=== PATIENT | female | born 1940 | race Caucasian/White ===

== ENCOUNTER 2017-11-24 22:03 | Emergency (ER) | payer MEDICARE ==
[~2017-11-24] VITALS: Ht 154.9 cm; Wt 63.2 kg
[~2017-11-24 22:03] MED LIST: ACET-2119 PO; AMLO1CAP19 PO; ATEN-169 PO; FURO-149 PO; FURO-150 PO; METF500T PO; OMEP40CA37 PO; OXYB5TAB11 PO; WARF2.5T9 PO; WARF5TAB9 PO
[2017-11-24 22:57] VITALS: BP 155/97
== END 2017-11-24 23:37 | disposition home or self-care (01) ==
LOC: ER 22:04
DX: K91.840 Postprocedural hemorrhage of a digestive system organ or structure following a digestive system procedure (principal); E78.00 Pure hypercholesterolemia, unspecified; I10 Essential (primary) hypertension; J44.9 Chronic obstructive pulmonary disease, unspecified; Z90.49 Acquired absence of other specified parts of digestive tract; Z88.5 Allergy status to narcotic agent; Z79.01 Long term (current) use of anticoagulants
CPT/HCPCS: 99281

== ENCOUNTER 2017-12-13 02:52 | Emergency (ER) | payer MEDICARE ==
[~2017-12-13] VITALS: Ht 154.9 cm; Wt 61.0 kg
[2017-12-13] MEDS ORDERED: aspirin 81mg tab.chew PO ONE ×2 (03:05→05:30)
[2017-12-13 03:40] LABS: INR 2.8 INR; PARTIAL THROMBOPLASTIN TIME 50 SECONDS (22-32); PROTHROMBIN TIME 28.2 SECONDS (9.0-12.0)
[2017-12-13 03:41] LABS: BASOPHILS % (AUTO) 0.6 % (0-1); EOSINOPHILS # (AUTO) 0.3 X10'3 (0-0.9); HEMATOCRIT 36.9 % (35.0-45.0); HEMOGLOBIN 12.4 g/dl (12.0-16.0); LYMPHOCYTES # (AUTO) 1.9 X10'3 (1.1-4.8); MEAN CORPUSCULAR HGB CONC 33.5 % (33.0-36.5); MEAN CORPUSCULAR VOLUME 89.5 FL (78-98); MEAN PLATELET VOLUME 8.1 FL (7.4-10.4); MONOCYTES # (AUTO) 0.4 X10'3 (0-0.9); MONOCYTES % (AUTO) 7.3 % (2-12); NEUTROPHILS # (AUTO) 2.7 X10'3 (1.8-7.7); NEUTROPHILS % (AUTO) 51.1 % (42-75); PLATELET COUNT 201 X10'3 (140-440); RED BLOOD COUNT 4.12 X10'6 (4.20-5.60); RED CELL DISTRIBUTION WIDTH 15.9 % (11.5-14.5); WHITE BLOOD COUNT 5.3 X10'3 (4.5-11.0)
[2017-12-13 03:42] LABS: ALANINE AMINOTRANSFERASE 17 U/L (12-78); ALBUMIN 3.4 G/DL (3.4-5.0); ALBUMIN/GLOBULIN RATIO 0.9 (1.1-1.5); ALKALINE PHOSPHATASE 96 IU/L (46-116); ANION GAP 8 (8-16); ASPARTATE AMINO TRANSFERASE 18 U/L (10-37); BILIRUBIN,TOTAL 0.5 MG/DL (0.1-1.0); BLOOD UREA NITROGEN 17 MG/DL (7-18); BUN/CREATININE RATIO 19.3 (6.6-38.0); CALCIUM 9.7 MG/DL (8.5-10.1); CHLORIDE 99 MMOL/L (99-107); CREATININE 0.88 MG/DL (0.40-0.90); GLUCOSE 109 MG/DL (70-104); POTASSIUM 4.1 MMOL/L (3.5-5.1); SODIUM 135 MMOL/L (135-145); TOTAL CARBON DIOXIDE 28.2 MMOL/L (24-32); TOTAL PROTEIN 7.2 G/DL (6.4-8.2); eGFR 62 ML/MIN
[2017-12-13] MEDS ORDERED: pantoprazole 40 MG vial IV ONE (05:30)
[2017-12-13] MEDS ORDERED: nitroGLYCERIN 0.2mg/hour patch TD ONE (05:30)
[2017-12-13] MEDS ORDERED: iohexol 350MG/ML 100ml bottle IV ONE (05:39)
[2017-12-13] MEDS ORDERED: WARF5TAB9 PO (05:54)
[2017-12-13] MEDS ORDERED: WARF2.5T9 PO (05:54)
[2017-12-13] MEDS ORDERED: metoprolol PO (05:54)
[2017-12-13] MEDS ORDERED: metoprolol tartrate 1mg/ml inj IV ONE (07:45)
[2017-12-13] MEDS ORDERED: metoprolol tartrate 50mg tablet PO ONE (07:55)
[2017-12-13] MEDS ORDERED: oxybutynin 5mg tablet PO SCH (07:55)
[2017-12-13] MEDS ORDERED: MESSAGE TO NURSING PO SCH (08:00)
[2017-12-13 09:59] VITALS: BP 146/85
== END 2017-12-13 10:01 | disposition home or self-care (01) ==
LOC: ER 02:53
DX: I48.91 Unspecified atrial fibrillation (principal); I10 Essential (primary) hypertension; E78.00 Pure hypercholesterolemia, unspecified; Z88.5 Allergy status to narcotic agent
CPT/HCPCS: 36415; 71045; 71275; 74176; 80053; 84484; 85025; 85610; 85730; 93005; 96374; 96375; 99285; C9113; J3490; J7030; Q9967

== ENCOUNTER 2018-05-26 18:50 | Emergency (ER) | payer MEDICARE ==
[~2018-05-26] VITALS: Ht 154.9 cm; Wt 63.6 kg
[~2018-05-26 18:50] MED LIST changes: -AMLO1CAP19 PO; -ATEN-169 PO; -FURO-149 PO; -FURO-150 PO; +metoprolol PO
[2018-05-26 19:21] LABS: BASOPHILS % (AUTO) 0.4 % (0-1); EOSINOPHILS # (AUTO) 0.2 X10'3 (0-0.9); EOSINOPHILS % (AUTO) 4.4 % (0-6); HEMATOCRIT 36.7 % (35.0-45.0); LYMPHOCYTES # (AUTO) 1.8 X10'3 (1.1-4.8); LYMPHOCYTES % (AUTO) 31.9 % (21-51); MEAN CORPUSCULAR HEMOGLOBIN 29.9 PG (27.0-31.0); MEAN CORPUSCULAR HGB CONC 32.8 % (33.0-36.5); MEAN PLATELET VOLUME 7.8 FL (7.4-10.4); MONOCYTES # (AUTO) 0.5 X10'3 (0-0.9); MONOCYTES % (AUTO) 8.4 % (2-12); NEUTROPHILS # (AUTO) 3.1 X10'3 (1.8-7.7); NEUTROPHILS % (AUTO) 54.9 % (42-75); PLATELET COUNT 215 X10'3 (140-440); RED BLOOD COUNT 4.03 X10'6 (4.20-5.60); RED CELL DISTRIBUTION WIDTH 15.9 % (11.5-14.5); WHITE BLOOD COUNT 5.7 X10'3 (4.5-11.0)
[2018-05-26 19:38] LABS: ALANINE AMINOTRANSFERASE 23 U/L (12-78); ALBUMIN 3.3 G/DL (3.4-5.0); ALBUMIN/GLOBULIN RATIO 0.9 (1.1-1.5); ALKALINE PHOSPHATASE 88 IU/L (46-116); ANION GAP 7 (8-16); ASPARTATE AMINO TRANSFERASE 21 U/L (10-37); BILIRUBIN,TOTAL 0.4 MG/DL (0.1-1.0); BLOOD UREA NITROGEN 13 MG/DL (7-18); BUN/CREATININE RATIO 16.3 (6.6-38.0); CALCIUM 9.1 MG/DL (8.5-10.1); CHLORIDE 98 MMOL/L (99-107); GLUCOSE 108 MG/DL (70-104); INR 2.3 INR; PARTIAL THROMBOPLASTIN TIME 44 SECONDS (22-32); POTASSIUM 3.7 MMOL/L (3.5-5.1); PROTHROMBIN TIME 22.5 SECONDS (9.0-12.0); SODIUM 133 MMOL/L (135-145); TOTAL CARBON DIOXIDE 28.2 MMOL/L (24-32); TOTAL PROTEIN 6.9 G/DL (6.4-8.2); eGFR 69 ML/MIN
[2018-05-26] MEDS ORDERED: iohexol 350MG/ML 100ml bottle IV ONE (20:41)
[2018-05-26] MEDS ORDERED: [UNRECOGNIZED DRUG - REMARK] PO NR (21:00)
[2018-05-26] MEDS: diltiazem 5mg/ml 5ml inj. IV ONE (21:53)
[2018-05-26] MEDS: metoprolol tartrate 50mg tablet PO ONE (21:53)
[2018-05-26] MEDS: propofol 10mg/ml 20ml vial IV ONE (22:00)
[2018-05-26] MEDS: metoclopramide 5 mg/ml inj IV ONE (22:10)
[2018-05-26] MEDS: propofol 1000mg/100ml bottle 100 ML IV ONE (22:11)
[2018-05-26 22:41] VITALS: BP 125/70
== END 2018-05-26 23:36 | disposition home or self-care (01) ==
LOC: ER 18:50
DX: K43.9 Ventral hernia without obstruction or gangrene (principal); I48.91 Unspecified atrial fibrillation; E78.00 Pure hypercholesterolemia, unspecified; I10 Essential (primary) hypertension; I49.9 Cardiac arrhythmia, unspecified; Z90.49 Acquired absence of other specified parts of digestive tract; Z98.890 Other specified postprocedural states; Z88.6 Allergy status to analgesic agent; Z79.899 Other long term (current) drug therapy
CPT/HCPCS: 36415; 71045; 74174; 80053; 84484; 85025; 85610; 85730; 93005; 96374; 96375; 99152; 99153; 99285; J2704; J2765; Q9967; J3490

== ENCOUNTER 2018-09-18 05:37 | Observation (INO) | payer MEDICARE ==
[2018-09-17 11:06] LABS: CLARITY,URINE CLOUDY (Clear); COLOR,URINE YELLOW (Yellow); GLUCOSE, URINE NEGATIVE (Neg); KETONES,URINE NEGATIVE (Neg); LEUKOCYTE ESTERASE ,URINE TRACE (Neg); NITRITES, URINE POSITIVE (Neg); OCCULT BLOOD,URINE TRACE-INTACT (Neg); PROTEIN,URINE NEGATIVE (Neg); UROBILINOGEN,URINE 0.2 E.U/dL (0.2-1.0)
[2018-09-17 11:08] LABS: UA COLLECTION TYPE CLN CATCH MIDSTREAM
[2018-09-17 11:11] LABS: EOSINOPHILS # (AUTO) 0.2 X10'3 (0-0.9); EOSINOPHILS % (AUTO) 4.6 % (0-6); LYMPHOCYTES # (AUTO) 1.4 X10'3 (1.1-4.8); LYMPHOCYTES % (AUTO) 31.2 % (21-51); MEAN CORPUSCULAR HEMOGLOBIN 29.9 PG (27.0-31.0); MEAN CORPUSCULAR HGB CONC 33.4 g/dL (33.0-36.5); MEAN CORPUSCULAR VOLUME 89.7 FL (78-98); MEAN PLATELET VOLUME 7.8 FL (7.4-10.4); MONOCYTES # (AUTO) 0.4 X10'3 (0-0.9); NEUTROPHILS # (AUTO) 2.4 X10'3 (1.8-7.7); NEUTROPHILS % (AUTO) 53.2 % (42-75); PRE OP HEMATOCRIT 36.3 % (35.0-45.0); PRE OP HEMOGLOBIN 12.1 g/dL (12.0-16.0); PRE OP PLATELET COUNT 229 X10'3 (140-440); RED BLOOD COUNT 4.05 X10'6 (4.20-5.60); RED CELL DISTRIBUTION WIDTH 14.7 % (11.5-14.5)
[2018-09-17 11:17] LABS: BACTERIA,URINE 3+ /HPF (Neg); MUCUS STRANDS FEW /LPF (Neg); RBC,URINE 0-2 /HPF (0-2); SQUAMOUS EPITHELIAL CELL,UR FEW /LPF (FEW); WBC,URINE 0-4 /HPF (0-4)
[2018-09-17 11:25] LABS: ALBUMIN 3.3 G/DL (3.4-5.0); ALBUMIN/GLOBULIN RATIO 0.9 (1.1-1.5); ALKALINE PHOSPHATASE 93 IU/L (46-116); BLOOD UREA NITROGEN 12 MG/DL (7-18); BUN/CREATININE RATIO 21.1 (6.6-38.0); CALCIUM 9.4 MG/DL (8.5-10.1); CHLORIDE 99 MMOL/L (99-107); CREATININE 0.57 MG/DL (0.40-0.90); PRE OP ALT 19 U/L (30-65); PRE OP ANION GAP 6 (8-16); PRE OP AST 21 U/L (10-37); PRE OP BILIRUB, TOTAL 0.6 MG/DL (0.0-1.0); PRE OP GLUCOSE 90 MG/DL (70-104); PRE OP POTASSIUM 4.5 MMOL/L (3.4-5.1); PRE OP SODIUM 133 MMOL/L (135-145); TOTAL CARBON DIOXIDE 28.5 MMOL/L (24-32); TOTAL PROTEIN 6.9 G/DL (6.4-8.2); eGFR > 90 ML/MIN
[~2018-09-18] VITALS: Ht 154.9 cm; Wt 62.4 kg
[2018-09-18] VITALS (17 sets, daily range): BP systolic 116–163; BP diastolic 66–104
[~2018-09-18 05:37] MED LIST changes: +DOCUMENT DATE & TIME OF BETA-BLOCKER PO ONE; +METO50TA16 PO; +MV-M1CAP15 PO; +cefazolin/dext.iso 2gm/50ml 50 ML IV ONE; +famotidine 20mg tablet PO ONE; -metoprolol PO
[2018-09-18] MEDS ORDERED: LIDOcaine 1% (10mg/ml) 2ml vial ONE (06:02)
[2018-09-18] MEDS: ringers solution, lacted 1,000 ML IV SCH ×2 (06:22→11:12)
[2018-09-18] MEDS ORDERED: BUPIVAcaine/PF 2.5mg/ml (0.25%) 10ml vial ONE (06:45)
[2018-09-18] MEDS ORDERED: ceFAZolin 1000mg inj ONE (06:45)
[2018-09-18 06:59] LABS: PRE OP PARTIAL THROMB. TIME 32 SECONDS (22-32); PROTHROMBIN TIME 10.1 SECONDS (9.0-12.0)
[2018-09-18] MEDS ORDERED: ipratropium/albuterol 3ml nebule NEB ONE (07:10)
[2018-09-18] MEDS ORDERED: ipratropium/albuterol 3ml nebule ONE (07:16)
[2018-09-18] MEDS ORDERED: ondansetron/PF 4mg/2ml inj ONE (07:31)
[2018-09-18] MEDS ORDERED: sevoflurane 250ml liquid IH ONE (07:31)
[2018-09-18] MEDS ORDERED: fentaNYL/PF 50MCG/1 ML 2ML syringe ONE (07:32)
[2018-09-18] MEDS ORDERED: propofol inj 20 ML IV ONE (07:34)
[2018-09-18] MEDS ORDERED: rocuronium 10mg/ml inj IV ONE (07:34)
[2018-09-18] MEDS ORDERED: LIDOcaine 2% (20mg/ml) 5ml vial ONE (07:34)
[2018-09-18] MEDS ORDERED: dexamethasone sod phosphate 4mg/ml inj. ONE (07:50)
[2018-09-18] MEDS ORDERED: ROPIVAcaine 0.5% (5mg/ml) 30ml vial ONE (08:20)
[2018-09-18] MEDS ORDERED: neostigmine methylsulfate 1 MG/ML 10ml vial ONE (08:28)
[2018-09-18] MEDS ORDERED: glycopyrrolate 0.2mg/ml inj ONE (08:28)
--- NOTE | 2018-09-18 08:45 | NUR ---
Received from OR via BED , accompanied by Anesthesiologist DR LAWLER and report given by Anesthesiolgist. PATIENT WAKING UP, C/O PAIN SEE EMAR, V/S WNL, NEUROVASCULAR CHECKS INTACT, 20G PIV LUE, SCD ON, 4 BANDAIDS TO LAP SIGHTS OF ABDOMEN CDI
[2018-09-18] MEDS ORDERED: morphine 4 MG/ML inj SYRINge IV PRN ×2 (09:10→09:20)
[2018-09-18] MEDS ORDERED: HYDROmorphone inj. 0.5 MG/0.5 ML DISP.SYRIN IV PRN (09:10)
[2018-09-18] MEDS ORDERED: ondansetron/PF 4mg/2ml inj IV PRN ×2 (09:10→10:05)
[2018-09-18] MEDS ORDERED: ringers solution, lacted 1,000 ML IV SCH (09:10)
[2018-09-18] MEDS ORDERED: morphine 4 MG/ML inj SYRINge ONE (09:11)
[2018-09-18] MEDS ORDERED: HYDROcodone/acetaminophen 5mg/325mg tablet PO PRN (10:05)
--- NOTE | 2018-09-18 10:27 | NUR ---
AWAITING ROOM TO BE CLEANED FOR TRANSFER TO SURGICAL. NO CHANGES WITH PATIENT
--- NOTE | 2018-09-18 10:30 | NUR ---
Received report from recovery nurse Ramón DENSON. Awaiting arrival to room 354C.
[2018-09-18] MEDS ORDERED: acetaminophen 325mg tablet PO PRN (10:45)
--- NOTE | 2018-09-18 10:45 | NUR ---
PATIENT SLEEPY BUT ORIENTED X3, DENIES PAIN, V/S WNL, NEUROVASCULAR CHECKS INTACT, 20G PIV LUE, SCD ON, 4 BANDAIDS TO LAP SIGHTS OF ABDOMEN CDI. TAKEN TO SURGICAL WITH ALL BELONGINGS AND HOOKED UP TO MONITORS IN ROOM AND REPORT GIVEN TO JACQUARD FIXER WHO HAS TAKEN OVER PATIENT CARE.
--- NOTE | 2018-09-18 11:15 | NUR ---
Patient arrived to room 354C. VSS. Abdomen soft, lap sites CDI.
--- NOTE | 2018-09-18 16:59 | NUR ---
Post op vital signs taken per protocol. Due to vital sign machine malfunction, VS did not save when machine was unplugged and all values recorded were lost. Informed charge nurse. VS machine tagged for engineering to look at machine.
--- NOTE | 2018-09-18 18:22 | NUR ---
Problems reprioritized. Patient report given, questions answered & plan of care reviewed with Pat RN.
[2018-09-18] MEDS ORDERED: warfarin 2.5mg tablet PO SCH (21:00)
[2018-09-18] MEDS: oxybutynin 5mg tablet PO SCH (21:21)
[2018-09-18] MEDS: metFORMIN 500mg tablet PO SCH (21:22)
[2018-09-18] MEDS: metoprolol tartrate 50mg tablet PO SCH (21:23)
[2018-09-18] MEDS: HYDROcodone/acetaminophen 5mg/325mg tablet PO PRN (21:28)
[2018-09-19] VITALS: BP 112/69
[2018-09-19 04:00] VITALS: BP 94/52
[2018-09-19 05:58] LABS: BASOPHILS % (AUTO) 0.3 % (0-1); EOSINOPHILS % (AUTO) 0.1 % (0-6); HEMATOCRIT 29.8 % (35.0-45.0); HEMOGLOBIN 10.1 g/dl (12.0-16.0); LYMPHOCYTES # (AUTO) 1.1 X10'3 (1.1-4.8); LYMPHOCYTES % (AUTO) 18.4 % (21-51); MEAN CORPUSCULAR HEMOGLOBIN 30.4 PG (27.0-31.0); MEAN CORPUSCULAR HGB CONC 33.9 g/dL (33.0-36.5); MEAN CORPUSCULAR VOLUME 89.8 FL (78-98); MONOCYTES # (AUTO) 0.7 X10'3 (0-0.9); MONOCYTES % (AUTO) 11.2 % (2-12); NEUTROPHILS # (AUTO) 4.1 X10'3 (1.8-7.7); PLATELET COUNT 185 X10'3 (140-440); RED BLOOD COUNT 3.32 X10'6 (4.20-5.60); RED CELL DISTRIBUTION WIDTH 14.4 % (11.5-14.5); WHITE BLOOD COUNT 5.8 X10'3 (4.5-11.0)
[2018-09-19 06:04] LABS: PROTHROMBIN TIME 10.3 SECONDS (9.0-12.0)
--- NOTE | 2018-09-19 06:32 | NUR ---
Patient in room [facility]. I have received report from Pat RN and had the opportunity to ask questions and assume patient care.
[2018-09-19 07:20] VITALS: BP 107/57
[2018-09-19] MEDS ORDERED: pantoprazole 40mg Tablet.DR PO SCH (07:30)
[2018-09-19] MEDS: metoprolol tartrate 50mg tablet PO SCH (07:57)
[2018-09-19] MEDS: metFORMIN 500mg tablet PO SCH (07:57)
[2018-09-19] MEDS: oxybutynin 5mg tablet PO SCH (07:57)
[2018-09-19] MEDS ORDERED: multivitamins, therapeutics tablet PO SCH (08:00)
[2018-09-19 11:17] VITALS: BP 105/53
[2018-09-19] MEDS: HYDROcodone/acetaminophen 5mg/325mg tablet PO PRN (13:20)
[2018-09-19] MEDS ORDERED: HYDR-4383 PO (16:20)
[2018-09-19] MEDS ORDERED: warfarin 5mg tablet PO SCH (21:00)
== END 2018-09-19 16:48 | disposition home or self-care (01) ==
LOC: PAS 05:37 → SUR 3N 10:04
PROVIDERS: ADMIT Surgery; ATTEND Surgery
DX: K43.6 Other and unspecified ventral hernia with obstruction, without gangrene (principal); I48.91 Unspecified atrial fibrillation; I10 Essential (primary) hypertension; E11.9 Type 2 diabetes mellitus without complications; K21.9 Gastro-esophageal reflux disease without esophagitis; F17.200 Nicotine dependence, unspecified, uncomplicated; M81.0 Age-related osteoporosis without current pathological fracture; Z85.810 Personal history of malignant neoplasm of tongue; Z79.899 Other long term (current) drug therapy; Z91.81 History of falling
CPT/HCPCS: 36415; 49653; 80053; 81001; 82948; 83036; 85025; 85610; 85730; 87077; 87088; 87186; 93005; 94640; 96374; 96375; C1781; G0378; J0690; J1100; J2001; J2270; J2405; J2704; J2710; J3010; J3490; J7120; A7000; C1758; J2795

== ENCOUNTER 2019-03-02 02:13 | Emergency (ER) | payer MEDICARE ==
[~2019-03-02] VITALS: Ht 154.9 cm; Wt 58.6 kg
[~2019-03-02 02:13] MED LIST changes: -DOCUMENT DATE & TIME OF BETA-BLOCKER PO ONE; +HYDR-4383 PO; +OMEP40CA13 PO; -OMEP40CA37 PO; -OXYB5TAB11 PO; +OXYB5TAB16 PO; -cefazolin/dext.iso 2gm/50ml 50 ML IV ONE; -famotidine 20mg tablet PO ONE
[2019-03-02] MEDS ORDERED: diphenhydrAMINE 50 mg/ml inj IV ONE (02:35)
[2019-03-02] MEDS ORDERED: methylPREDNISolone sod succ 125mg/2ml vial IV ONE (02:35)
[2019-03-02 03:12] LABS: BASOPHILS % (AUTO) 0.8 % (0-1); EOSINOPHILS # (AUTO) 0.1 X10'3 (0-0.9); EOSINOPHILS % (AUTO) 2.5 % (0-6); HEMATOCRIT 34.6 % (35.0-45.0); HEMOGLOBIN 11.6 g/dl (12.0-16.0); LYMPHOCYTES # (AUTO) 1.2 X10'3 (1.1-4.8); LYMPHOCYTES % (AUTO) 25.3 % (21-51); MEAN CORPUSCULAR HEMOGLOBIN 30.2 PG (27.0-31.0); MEAN CORPUSCULAR HGB CONC 33.5 g/dL (33.0-36.5); MEAN CORPUSCULAR VOLUME 90.2 FL (78-98); MEAN PLATELET VOLUME 7.5 FL (7.4-10.4); MONOCYTES # (AUTO) 0.4 X10'3 (0-0.9); MONOCYTES % (AUTO) 8.9 % (2-12); NEUTROPHILS % (AUTO) 62.5 % (42-75); PLATELET COUNT 219 X10'3 (140-440); RED BLOOD COUNT 3.83 X10'6 (4.20-5.60); WHITE BLOOD COUNT 4.8 X10'3 (4.5-11.0)
[2019-03-02 03:17] LABS: ALANINE AMINOTRANSFERASE 21 U/L (12-78); ALBUMIN 3.5 G/DL (3.4-5.0); ALKALINE PHOSPHATASE 85 IU/L (46-116); ANION GAP 8 (8-16); ASPARTATE AMINO TRANSFERASE 15 U/L (10-37); BILIRUBIN,TOTAL 0.5 MG/DL (0.1-1.0); BLOOD UREA NITROGEN 10 MG/DL (7-18); BUN/CREATININE RATIO 16.9 (6.6-38.0); CALCIUM 9.7 MG/DL (8.5-10.1); CHLORIDE 98 MMOL/L (99-107); CREATININE 0.59 MG/DL (0.40-0.90); GLUCOSE 112 MG/DL (70-104); SODIUM 133 MMOL/L (135-145); TOTAL CARBON DIOXIDE 26.9 MMOL/L (24-32); eGFR > 90 ML/MIN
[2019-03-02 03:41] LABS: PARTIAL THROMBOPLASTIN TIME 51 SECONDS (22-32)
[2019-03-02 03:53] VITALS: BP 143/94
== END 2019-03-02 04:00 | disposition home or self-care (01) ==
LOC: ER 02:14
DX: T78.40XA Allergy, unspecified, initial encounter (principal); I48.2 Chronic atrial fibrillation; L50.9 Urticaria, unspecified; E78.00 Pure hypercholesterolemia, unspecified; I10 Essential (primary) hypertension; F41.9 Anxiety disorder, unspecified; F10.99 Alcohol use, unspecified with unspecified alcohol-induced disorder; Z90.49 Acquired absence of other specified parts of digestive tract; Z98.890 Other specified postprocedural states; Z88.5 Allergy status to narcotic agent; Z79.84 Long term (current) use of oral hypoglycemic drugs; Z79.01 Long term (current) use of anticoagulants; Z79.899 Other long term (current) drug therapy; X58.XXXA Exposure to other specified factors, initial encounter; Y93.89 Activity, other specified; Y92.89 Other specified places as the place of occurrence of the external cause; Y99.8 Other external cause status; Y90.9 Presence of alcohol in blood, level not specified
CPT/HCPCS: 36415; 71045; 80053; 83880; 85025; 85610; 85730; 93005; 96374; 96375; 99284; J1200; J2930

== ENCOUNTER 2019-05-10 13:19 | Emergency (ER) | payer MEDICARE ==
[~2019-05-10] VITALS: Ht 154.9 cm; Wt 58.6 kg
[2019-05-10] MEDS ORDERED: acetaminophen 325mg tablet PO ONE (14:45)
[2019-05-10 15:24] VITALS: BP 149/86
== END 2019-05-10 15:36 | disposition home or self-care (01) ==
LOC: ER 13:21
DX: S41.111A Laceration without foreign body of right upper arm, initial encounter (principal); M25.531 Pain in right wrist; I48.91 Unspecified atrial fibrillation; E78.00 Pure hypercholesterolemia, unspecified; I10 Essential (primary) hypertension; F41.9 Anxiety disorder, unspecified; Z90.49 Acquired absence of other specified parts of digestive tract; Z98.890 Other specified postprocedural states; Z88.5 Allergy status to narcotic agent; Z79.84 Long term (current) use of oral hypoglycemic drugs; Z79.01 Long term (current) use of anticoagulants; Z79.899 Other long term (current) drug therapy; W18.39XA Other fall on same level, initial encounter; Y93.39 Activity, other involving climbing, rappelling and jumping off; Y92.89 Other specified places as the place of occurrence of the external cause; Y99.8 Other external cause status
CPT/HCPCS: 29125; 70450; 73030; 73080; 73110; 73130; 99284

== ENCOUNTER 2019-06-16 07:57 | Emergency (ER) | payer MEDICARE ==
[~2019-06-16] VITALS: Ht 154.9 cm; Wt 58.1 kg
--- NOTE | 2019-06-16 08:30 | NUR ---
Pt out to CT. RN escorting.
--- NOTE | 2019-06-16 08:45 | NUR ---
Back from CT
[2019-06-16 09:08] LABS: BASOPHILS % (AUTO) 0.8 % (0-1); EOSINOPHILS # (AUTO) 0.1 X10'3 (0-0.9); EOSINOPHILS % (AUTO) 2.8 % (0-6); HEMOGLOBIN 10.8 g/dl (12.0-16.0); LYMPHOCYTES # (AUTO) 0.9 X10'3 (1.1-4.8); LYMPHOCYTES % (AUTO) 20.5 % (21-51); MEAN CORPUSCULAR HEMOGLOBIN 30.5 PG (27.0-31.0); MEAN CORPUSCULAR HGB CONC 33.7 g/dL (33.0-36.5); MEAN CORPUSCULAR VOLUME 90.3 FL (78-98); MEAN PLATELET VOLUME 7.8 FL (7.4-10.4); MONOCYTES # (AUTO) 0.4 X10'3 (0-0.9); MONOCYTES % (AUTO) 9.2 % (2-12); NEUTROPHILS % (AUTO) 66.7 % (42-75); PLATELET COUNT 181 X10'3 (140-440); RED BLOOD COUNT 3.54 X10'6 (4.20-5.60); WHITE BLOOD COUNT 4.6 X10'3 (4.5-11.0)
[2019-06-16 09:24] LABS: ALANINE AMINOTRANSFERASE 18 U/L (12-78); ALBUMIN 3.1 G/DL (3.4-5.0); ALBUMIN/GLOBULIN RATIO 0.9 (1.1-1.5); ALKALINE PHOSPHATASE 90 IU/L (46-116); ANION GAP 6 (8-16); ASPARTATE AMINO TRANSFERASE 25 U/L (10-37); BILIRUBIN,TOTAL 0.5 MG/DL (0.1-1.0); BLOOD UREA NITROGEN 10 MG/DL (7-18); BUN/CREATININE RATIO 14.1 (6.6-38.0); CALCIUM 9.1 MG/DL (8.5-10.1); CHLORIDE 100 MMOL/L (99-107); CREATININE 0.71 MG/DL (0.40-0.90); GLUCOSE 98 MG/DL (70-104); POTASSIUM 4.2 MMOL/L (3.5-5.1); SODIUM 134 MMOL/L (135-145); TOTAL CARBON DIOXIDE 28.3 MMOL/L (24-32); TOTAL PROTEIN 6.6 G/DL (6.4-8.2); eGFR 79 ML/MIN
[2019-06-16] MEDS ORDERED: MYCOL30CR TP (09:36)
[2019-06-16 10:02] VITALS: BP 153/95
== END 2019-06-16 10:04 | disposition home or self-care (01) ==
LOC: ER 07:58
DX: S00.11XA Contusion of right eyelid and periocular area, initial encounter (principal); S00.33XA Contusion of nose, initial encounter; S00.83XA Contusion of other part of head, initial encounter; D68.59 Other primary thrombophilia; B35.6 Tinea cruris; I48.91 Unspecified atrial fibrillation; E78.00 Pure hypercholesterolemia, unspecified; I10 Essential (primary) hypertension; F41.9 Anxiety disorder, unspecified; F10.99 Alcohol use, unspecified with unspecified alcohol-induced disorder; Z90.49 Acquired absence of other specified parts of digestive tract; Z98.890 Other specified postprocedural states; Z88.5 Allergy status to narcotic agent; Z79.84 Long term (current) use of oral hypoglycemic drugs; Z79.01 Long term (current) use of anticoagulants; Z79.899 Other long term (current) drug therapy; Y90.9 Presence of alcohol in blood, level not specified; W18.39XA Other fall on same level, initial encounter; Y93.89 Activity, other specified; Y92.89 Other specified places as the place of occurrence of the external cause; Y99.8 Other external cause status
CPT/HCPCS: 36415; 70450; 70486; 80053; 85025; 85610; 99284

== ENCOUNTER 2019-10-11 02:32 | Emergency (ER) | payer MEDICARE ==
[~2019-10-11] VITALS: Ht 154.9 cm; Wt 58.6 kg
[~2019-10-11 02:32] MED LIST changes: +MYCOL30CR TP
[2019-10-11 03:09] LABS: PARTIAL THROMBOPLASTIN TIME 52 SECONDS (22-32)
[2019-10-11 03:12] LABS: ALANINE AMINOTRANSFERASE 16 U/L (12-78); ALBUMIN 3.4 G/DL (3.4-5.0); ALBUMIN/GLOBULIN RATIO 0.9 (1.1-1.5); ALKALINE PHOSPHATASE 79 IU/L (46-116); ANION GAP 5 (8-16); ASPARTATE AMINO TRANSFERASE 23 U/L (10-37); BILIRUBIN,TOTAL 0.5 MG/DL (0.1-1.0); BLOOD UREA NITROGEN 18 MG/DL (7-18); BUN/CREATININE RATIO 23.4 (6.6-38.0); CHLORIDE 99 MMOL/L (99-107); CREATININE 0.77 MG/DL (0.40-0.90); GLUCOSE 108 MG/DL (70-104); POTASSIUM 4.7 MMOL/L (3.5-5.1); SODIUM 132 MMOL/L (135-145); TOTAL CARBON DIOXIDE 28.2 MMOL/L (24-32); TOTAL PROTEIN 7.3 G/DL (6.4-8.2); eGFR 72 ML/MIN
[2019-10-11 03:20] LABS: BASOPHILS % (AUTO) 0.9 % (0-1); EOSINOPHILS # (AUTO) 0.3 X10'3 (0-0.9); EOSINOPHILS % (AUTO) 7.1 % (0-6); HEMATOCRIT 35.6 % (35.0-45.0); HEMOGLOBIN 11.7 g/dl (12.0-16.0); LYMPHOCYTES # (AUTO) 1.9 X10'3 (1.1-4.8); LYMPHOCYTES % (AUTO) 39.5 % (21-51); MEAN CORPUSCULAR HGB CONC 32.8 g/dL (33.0-36.5); MEAN CORPUSCULAR VOLUME 88.3 FL (78-98); MONOCYTES # (AUTO) 0.4 X10'3 (0-0.9); MONOCYTES % (AUTO) 8.6 % (2-12); NEUTROPHILS # (AUTO) 2.1 X10'3 (1.8-7.7); NEUTROPHILS % (AUTO) 43.9 % (42-75); PLATELET COUNT 185 X10'3 (140-440); RED BLOOD COUNT 4.03 X10'6 (4.20-5.60); RED CELL DISTRIBUTION WIDTH 15.5 % (11.5-14.5); WHITE BLOOD COUNT 4.8 X10'3 (4.5-11.0)
[2019-10-11 04:08] VITALS: BP 148/93
== END 2019-10-11 04:16 | disposition home or self-care (01) ==
LOC: ER 02:33
DX: J06.9 Acute upper respiratory infection, unspecified (principal); I10 Essential (primary) hypertension; I48.91 Unspecified atrial fibrillation; E78.00 Pure hypercholesterolemia, unspecified; F41.9 Anxiety disorder, unspecified; Z90.49 Acquired absence of other specified parts of digestive tract; Z88.5 Allergy status to narcotic agent; Z79.899 Other long term (current) drug therapy; R20.2 Paresthesia of skin
CPT/HCPCS: 36415; 71045; 80053; 83880; 85025; 85610; 85730; 93005; 99285

== ENCOUNTER 2019-10-18 10:35 | Emergency (ER) | payer MEDICARE ==
[~2019-10-18] VITALS: Ht 154.9 cm; Wt 59.1 kg
[2019-10-18 11:47] LABS: BASOPHILS # (AUTO) 0.1 X10'3 (0-0.2); BASOPHILS % (AUTO) 1.4 % (0-1); EOSINOPHILS # (AUTO) 0.2 X10'3 (0-0.9); EOSINOPHILS % (AUTO) 3.6 % (0-6); HEMATOCRIT 36.6 % (35.0-45.0); LYMPHOCYTES # (AUTO) 1.2 X10'3 (1.1-4.8); LYMPHOCYTES % (AUTO) 26.8 % (21-51); MEAN CORPUSCULAR HEMOGLOBIN 29.2 PG (27.0-31.0); MEAN CORPUSCULAR HGB CONC 32.7 g/dL (33.0-36.5); MEAN CORPUSCULAR VOLUME 89.1 FL (78-98); MONOCYTES # (AUTO) 0.3 X10'3 (0-0.9); MONOCYTES % (AUTO) 6.9 % (2-12); NEUTROPHILS # (AUTO) 2.7 X10'3 (1.8-7.7); NEUTROPHILS % (AUTO) 61.3 % (42-75); PLATELET COUNT 195 X10'3 (140-440); RED CELL DISTRIBUTION WIDTH 15.8 % (11.5-14.5); WHITE BLOOD COUNT 4.4 X10'3 (4.5-11.0)
[2019-10-18 12:35] LABS: ALANINE AMINOTRANSFERASE 14 U/L (12-78); ALBUMIN 3.4 G/DL (3.4-5.0); ALBUMIN/GLOBULIN RATIO 0.9 (1.1-1.5); ALKALINE PHOSPHATASE 74 IU/L (46-116); ANION GAP 6 (8-16); ASPARTATE AMINO TRANSFERASE 19 U/L (10-37); BILIRUBIN,TOTAL 0.6 MG/DL (0.1-1.0); BLOOD UREA NITROGEN 12 MG/DL (7-18); BUN/CREATININE RATIO 17.6 (6.6-38.0); CALCIUM 9.2 MG/DL (8.5-10.1); CHLORIDE 101 MMOL/L (99-107); CREATININE 0.68 MG/DL (0.40-0.90); GLUCOSE 92 MG/DL (70-104); POTASSIUM 3.9 MMOL/L (3.5-5.1); SODIUM 136 MMOL/L (135-145); TOTAL CARBON DIOXIDE 29.4 MMOL/L (24-32); TOTAL PROTEIN 7.2 G/DL (6.4-8.2); eGFR 83 ML/MIN
[2019-10-18 12:39] LABS: MAGNESIUM 1.8 MG/DL (1.5-2.4); TROPONIN I < 0.04 NG/ML (0.0-0.05)
[2019-10-18 13:02] LABS: CLARITY,URINE CLEAR (Clear); COLOR,URINE YELLOW (Yellow); GLUCOSE, URINE NEGATIVE (Neg); KETONES,URINE NEGATIVE (Neg); LEUKOCYTE ESTERASE ,URINE SMALL (Neg); NITRITES, URINE NEGATIVE (Neg); OCCULT BLOOD,URINE SMALL (Neg); PROTEIN,URINE NEGATIVE (Neg); UROBILINOGEN,URINE 0.2 E.U/dL (0.2-1.0)
[2019-10-18 13:04] LABS: UA COLLECTION TYPE OTHER
[2019-10-18 13:10] LABS: BACTERIA,URINE FEW /HPF (Neg); RBC,URINE 0-2 /HPF (0-2); WBC,URINE 0-4 /HPF (0-4)
[2019-10-18 13:11] LABS: MUCUS STRANDS FEW /LPF (Neg); SQUAMOUS EPITHELIAL CELL,UR FEW /LPF (FEW)
[2019-10-18 14:39] VITALS: BP 153/82
== END 2019-10-18 14:41 | disposition home or self-care (01) ==
LOC: ER 10:35
DX: R06.02 Shortness of breath (principal); F41.9 Anxiety disorder, unspecified; I48.91 Unspecified atrial fibrillation; E78.00 Pure hypercholesterolemia, unspecified; I10 Essential (primary) hypertension; E11.9 Type 2 diabetes mellitus without complications; Z98.890 Other specified postprocedural states; Z88.5 Allergy status to narcotic agent; Z79.01 Long term (current) use of anticoagulants; Z79.899 Other long term (current) drug therapy
CPT/HCPCS: 36415; 71045; 80053; 81001; 83605; 83735; 84145; 84484; 85025; 85610; 86140; 87077; 87088; 87186; 93005; 99285

== ENCOUNTER 2019-10-28 15:42 | Emergency (ER) | payer MEDICARE ==
[~2019-10-28] VITALS: Ht 154.9 cm; Wt 55.9 kg
[~2019-10-28 15:42] MED LIST changes: +FURO-150 PO; -HYDR-4383 PO
[2019-10-28] MEDS ORDERED: aspirin 81mg tab.chew PO ONE (17:00)
[2019-10-28] MEDS ORDERED: mag hydrox/Alum hydrox/simeth 30ml oral suspension PO ONE (17:20)
[2019-10-28] MEDS ORDERED: LIDOcaine Viscous 15ml cup MM PRN (17:20)
[2019-10-28 18:03] LABS: BASOPHILS % (AUTO) 0.5 % (0-1); EOSINOPHILS # (AUTO) 0.2 X10'3 (0-0.9); EOSINOPHILS % (AUTO) 3.3 % (0-6); HEMATOCRIT 37.1 % (35.0-45.0); HEMOGLOBIN 12.1 g/dl (12.0-16.0); LYMPHOCYTES # (AUTO) 1.5 X10'3 (1.1-4.8); LYMPHOCYTES % (AUTO) 27.1 % (21-51); MEAN CORPUSCULAR HEMOGLOBIN 28.9 PG (27.0-31.0); MEAN CORPUSCULAR HGB CONC 32.6 g/dL (33.0-36.5); MEAN CORPUSCULAR VOLUME 88.8 FL (78-98); MEAN PLATELET VOLUME 7.9 FL (7.4-10.4); MONOCYTES # (AUTO) 0.4 X10'3 (0-0.9); MONOCYTES % (AUTO) 8.1 % (2-12); NEUTROPHILS # (AUTO) 3.3 X10'3 (1.8-7.7); PLATELET COUNT 210 X10'3 (140-440); RED BLOOD COUNT 4.17 X10'6 (4.20-5.60); RED CELL DISTRIBUTION WIDTH 16.3 % (11.5-14.5); WHITE BLOOD COUNT 5.5 X10'3 (4.5-11.0)
[2019-10-28 18:08] LABS: ALANINE AMINOTRANSFERASE 20 U/L (12-78); ALBUMIN 3.3 G/DL (3.4-5.0); ALBUMIN/GLOBULIN RATIO 0.9 (1.1-1.5); ALKALINE PHOSPHATASE 96 IU/L (46-116); ANION GAP 6 (8-16); ASPARTATE AMINO TRANSFERASE 19 U/L (10-37); BILIRUBIN,TOTAL 0.4 MG/DL (0.1-1.0); BLOOD UREA NITROGEN 20 MG/DL (7-18); BUN/CREATININE RATIO 26.3 (6.6-38.0); CALCIUM 9.1 MG/DL (8.5-10.1); CHLORIDE 100 MMOL/L (99-107); CREATININE 0.76 MG/DL (0.40-0.90); GLUCOSE 99 MG/DL (70-104); POTASSIUM 4.1 MMOL/L (3.5-5.1); SODIUM 136 MMOL/L (135-145); TOTAL PROTEIN 6.9 G/DL (6.4-8.2); eGFR 73 ML/MIN
[2019-10-28 18:14] LABS: MAGNESIUM 1.8 MG/DL (1.5-2.4)
[2019-10-28 18:30] LABS: CLARITY,URINE CLEAR (Clear); COLOR,URINE YELLOW (Yellow); GLUCOSE, URINE NEGATIVE (Neg); KETONES,URINE NEGATIVE (Neg); LEUKOCYTE ESTERASE ,URINE TRACE (Neg); NITRITES, URINE NEGATIVE (Neg); OCCULT BLOOD,URINE TRACE-LYSED (Neg); PROTEIN,URINE NEGATIVE (Neg)
[2019-10-28 18:37] LABS: UA COLLECTION TYPE CLN CATCH MIDSTREAM
[2019-10-28 18:39] LABS: BACTERIA,URINE FEW /HPF (Neg); RBC,URINE 0-2 /HPF (0-2); SQUAMOUS EPITHELIAL CELL,UR MODERATE /LPF (FEW); WBC,URINE 0-4 /HPF (0-4)
[2019-10-28] MEDS ORDERED: POLY17PO10 PO (19:24)
[2019-10-28 19:41] VITALS: BP 147/93
== END 2019-10-28 21:23 | disposition home or self-care (01) ==
LOC: ER 15:43
DX: R10.31 Right lower quadrant pain (principal); I48.91 Unspecified atrial fibrillation; E78.00 Pure hypercholesterolemia, unspecified; I10 Essential (primary) hypertension; R05 Cough; E11.9 Type 2 diabetes mellitus without complications; F41.9 Anxiety disorder, unspecified; Z90.49 Acquired absence of other specified parts of digestive tract; Z98.890 Other specified postprocedural states; Z72.89 Other problems related to lifestyle; Z88.5 Allergy status to narcotic agent; Z79.01 Long term (current) use of anticoagulants; Z79.899 Other long term (current) drug therapy
CPT/HCPCS: 36415; 71045; 74018; 80053; 81001; 83605; 83735; 83880; 84484; 85025; 85610; 93005; 99285

== ENCOUNTER 2020-03-03 12:34 | Emergency (ER) | payer MEDICARE ==
[~2020-03-03] VITALS: Ht 154.9 cm; Wt 56.0 kg
--- NOTE | 2020-03-03 13:33 | NUR ---
vicki ambriz at bedside for assessment.
--- NOTE | 2020-03-03 13:42 | NUR ---
trauma called off by vicki ambriz
[2020-03-03] MEDS ORDERED: TETanus/Pertussis (Acell)/Diphther VAC/PF (Tdap-Adult) 0.5ml syringe IMVAC ONE (13:45)
[2020-03-03] MEDS ORDERED: LIDOcaine 1% W/epiNEPHrine 1:200,000 10ml vial IJ ONE (13:45)
[2020-03-03] MEDS ORDERED: bacitracin 15gm ointment TP ONE (13:45)
[2020-03-03 15:09] VITALS: BP 153/96
== END 2020-03-03 15:11 | disposition home or self-care (01) ==
LOC: ER 12:35
DX: S01.21XA Laceration without foreign body of nose, initial encounter (principal); I48.91 Unspecified atrial fibrillation; E78.00 Pure hypercholesterolemia, unspecified; I10 Essential (primary) hypertension; E11.9 Type 2 diabetes mellitus without complications; Z90.49 Acquired absence of other specified parts of digestive tract; Z98.890 Other specified postprocedural states; Z79.01 Long term (current) use of anticoagulants; Z79.899 Other long term (current) drug therapy; Z88.5 Allergy status to narcotic agent; W10.8XXA Fall (on) (from) other stairs and steps, initial encounter; Y93.89 Activity, other specified; Y92.89 Other specified places as the place of occurrence of the external cause; Y99.9 Unspecified external cause status
CPT/HCPCS: 12011; 70450; 70486; 90471; 90715; 99285

== ENCOUNTER 2020-05-22 02:42 | Emergency (ER) | payer MEDICARE ==
[~2020-05-22] VITALS: Ht 152.4 cm; Wt 56.3 kg
[2020-05-22] MEDS ORDERED: normal saline 500ml IV soln 1,000 ML IV ONE (02:55)
[2020-05-22 03:10] LABS: CLARITY,URINE CLEAR (Clear); COLOR,URINE YELLOW (Yellow); GLUCOSE, URINE NEGATIVE (Neg); KETONES,URINE NEGATIVE (Neg); LEUKOCYTE ESTERASE ,URINE TRACE (Neg); NITRITES, URINE NEGATIVE (Neg); OCCULT BLOOD,URINE SMALL (Neg); PROTEIN,URINE NEGATIVE (Neg)
--- NOTE | 2020-05-22 03:17 | NUR ---
PT REQUESTS RN TO CALL GRADDAUGHTER SJ TO GO BE WITH HER . [phone]
[2020-05-22 03:18] LABS: UA COLLECTION TYPE STRAIGHT CATH
[2020-05-22 03:19] LABS: BACTERIA,URINE FEW /HPF (Neg); RBC,URINE 0-2 /HPF (0-2); SQUAMOUS EPITHELIAL CELL,UR FEW /LPF (FEW); WBC,URINE 0-4 /HPF (0-4)
[2020-05-22 03:20] LABS: BASOPHILS % (AUTO) 0.8 % (0-1); EOSINOPHILS # (AUTO) 0.2 X10'3 (0-0.9); EOSINOPHILS % (AUTO) 3.6 % (0-6); HEMATOCRIT 35.4 % (35.0-45.0); HEMOGLOBIN 11.8 g/dl (12.0-16.0); LYMPHOCYTES # (AUTO) 1.6 X10'3 (1.1-4.8); LYMPHOCYTES % (AUTO) 34.5 % (21-51); MEAN CORPUSCULAR HGB CONC 33.3 g/dL (33.0-36.5); MEAN CORPUSCULAR VOLUME 90.1 FL (78-98); MEAN PLATELET VOLUME 7.9 FL (7.4-10.4); MONOCYTES # (AUTO) 0.5 X10'3 (0-0.9); MONOCYTES % (AUTO) 10.6 % (2-12); NEUTROPHILS # (AUTO) 2.4 X10'3 (1.8-7.7); NEUTROPHILS % (AUTO) 50.5 % (42-75); PLATELET COUNT 218 X10'3 (140-440); RED BLOOD COUNT 3.93 X10'6 (4.20-5.60); RED CELL DISTRIBUTION WIDTH 14.4 % (11.5-14.5); WHITE BLOOD COUNT 4.7 X10'3 (4.5-11.0)
[2020-05-22 03:24] LABS: ALANINE AMINOTRANSFERASE 21 U/L (12-78); ALBUMIN 3.5 G/DL (3.4-5.0); ALBUMIN/GLOBULIN RATIO 0.9 (1.1-1.5); ALKALINE PHOSPHATASE 90 IU/L (46-116); ANION GAP 5 (8-16); ASPARTATE AMINO TRANSFERASE 24 U/L (10-37); BILIRUBIN,TOTAL 0.5 MG/DL (0.1-1.0); BLOOD UREA NITROGEN 14 MG/DL (7-18); BUN/CREATININE RATIO 16.7 (6.6-38.0); CALCIUM 9.7 MG/DL (8.5-10.1); CHLORIDE 92 MMOL/L (99-107); CREATININE 0.84 MG/DL (0.40-0.90); GLUCOSE 106 MG/DL (70-104); LIPASE 58 U/L (73-393); POTASSIUM 3.8 MMOL/L (3.5-5.1); SODIUM 126 MMOL/L (135-145); TOTAL CARBON DIOXIDE 29.3 MMOL/L (24-32); TOTAL PROTEIN 7.3 G/DL (6.4-8.2); eGFR 65 ML/MIN
[2020-05-22] MEDS ORDERED: iohexol 300mg/ml 100ml inj. ONE (03:50)
--- NOTE | 2020-05-22 03:58 | NUR ---
GRANDDAUGHTER CONTACTED. SJ STATES THAT SHE WILL GO STAY WITH GRANDFATHER. PT REASSURED.
--- NOTE | 2020-05-22 04:10 | NUR ---
PT AT CT
--- NOTE | 2020-05-22 04:40 | NUR ---
PT HR MOVES FROM ONE-TEENS TO ONE 40S. MD AWARE. DISCUSSED PLAN OF CARE. MD PLANS TO MEDICATE PT AND REDUCE HR PRIOR TO DISCHARGE. DEPENDING ON HOME SITUATION, IS CONSIDERING AN ADMIT.
[2020-05-22] MEDS ORDERED: carvedilol 6.25mg tablet PO SCH (04:45)
[2020-05-22 05:04] LABS: TROPONIN I < 0.04 NG/ML (0.0-0.05)
[2020-05-22 05:56] VITALS: BP 123/72
[2020-05-24] MEDS ORDERED: METO-395 PO (10:26)
[2020-05-24] MEDS ORDERED: CEFD300C3 PO (10:27)
[2020-05-24] MEDS ORDERED: LACT1CAP26 PO (10:28)
== END 2020-05-22 05:57 | disposition home or self-care (01) ==
LOC: ER 02:42
DX: E87.1 Hypo-osmolality and hyponatremia (principal); I48.91 Unspecified atrial fibrillation; E78.00 Pure hypercholesterolemia, unspecified; I10 Essential (primary) hypertension; E11.9 Type 2 diabetes mellitus without complications; F41.9 Anxiety disorder, unspecified; Z90.49 Acquired absence of other specified parts of digestive tract; Z85.9 Personal history of malignant neoplasm, unspecified; Z88.5 Allergy status to narcotic agent; Z88.1 Allergy status to other antibiotic agents; Z79.899 Other long term (current) drug therapy
CPT/HCPCS: 36415; 74177; 80053; 81001; 83690; 84484; 85025; 85610; 87088; 93005; 96360; 99285; J7040; Q9967

== ENCOUNTER 2020-07-02 14:02 | Emergency (ER) | payer OTHER, MEDICARE ==
[~2020-07-02] VITALS: Ht 152.4 cm; Wt 52.3 kg
[~2020-07-02 14:02] MED LIST changes: -FURO-150 PO; +LACT1CAP26 PO; +METO-395 PO; -METO50TA16 PO
--- NOTE | 2020-07-02 14:51 | NUR ---
HUSSEIN STRONG AT BEDSIDE.
[2020-07-02 18:04] VITALS: BP 148/78
== END 2020-07-02 18:10 | disposition home or self-care (01) ==
LOC: ER 14:03
DX: S20.212A Contusion of left front wall of thorax, initial encounter (principal); M25.562 Pain in left knee; I10 Essential (primary) hypertension; E78.00 Pure hypercholesterolemia, unspecified; E11.9 Type 2 diabetes mellitus without complications; F41.9 Anxiety disorder, unspecified; Z98.890 Other specified postprocedural states; Z88.5 Allergy status to narcotic agent; Z88.1 Allergy status to other antibiotic agents; Z79.899 Other long term (current) drug therapy; V49.9XXA Car occupant (driver) (passenger) injured in unspecified traffic accident, initial encounter; Y93.89 Activity, other specified; Y92.89 Other specified places as the place of occurrence of the external cause; Y99.8 Other external cause status
CPT/HCPCS: 71045; 73552; 73560; 73590; 99284

== ENCOUNTER 2020-09-16 08:00 | Emergency (ER) | payer MEDICARE ==
[~2020-09-16] VITALS: Ht 157.5 cm; Wt 57.3 kg
[~2020-09-16 08:00] MED LIST changes: +AMIO200T36; +APIX2.5T PO; -LACT1CAP26 PO; +LEVO500T89 PO; +LISI20TA28 PO; -MYCOL30CR TP; -WARF2.5T9 PO; -WARF5TAB9 PO
[2020-09-16] MEDS ORDERED: furosemide 10 MG/1 ML 10ml inj IV ONE (08:55)
[2020-09-16 09:26] LABS: BASOPHILS % (AUTO) 0.6 % (0-1); EOSINOPHILS % (AUTO) 0.7 % (0-6); HEMATOCRIT 35.1 % (35.0-45.0); HEMOGLOBIN 11.5 g/dl (12.0-16.0); LYMPHOCYTES # (AUTO) 0.6 X10'3 (1.1-4.8); LYMPHOCYTES % (AUTO) 13.3 % (21-51); MEAN CORPUSCULAR HEMOGLOBIN 29.5 PG (27.0-31.0); MEAN CORPUSCULAR HGB CONC 32.7 g/dL (33.0-36.5); MEAN CORPUSCULAR VOLUME 90.5 FL (78-98); MONOCYTES # (AUTO) 0.3 X10'3 (0-0.9); MONOCYTES % (AUTO) 6.2 % (2-12); NEUTROPHILS # (AUTO) 3.6 X10'3 (1.8-7.7); NEUTROPHILS % (AUTO) 79.2 % (42-75); PLATELET COUNT 253 X10'3 (140-440); RED BLOOD COUNT 3.88 X10'6 (4.20-5.60); RED CELL DISTRIBUTION WIDTH 16.9 % (11.5-14.5); WHITE BLOOD COUNT 4.6 X10'3 (4.5-11.0)
[2020-09-16 09:40] LABS: CLARITY,URINE SLIGHTLY CLOUDY (Clear); COLOR,URINE YELLOW (Yellow); GLUCOSE, URINE NEGATIVE (Neg); KETONES,URINE NEGATIVE (Neg); LEUKOCYTE ESTERASE ,URINE NEGATIVE (Neg); NITRITES, URINE NEGATIVE (Neg); OCCULT BLOOD,URINE NEGATIVE (Neg); PROTEIN,URINE NEGATIVE (Neg); UROBILINOGEN,URINE 0.2 E.U/dL (0.2-1.0)
[2020-09-16 09:48] LABS: ALANINE AMINOTRANSFERASE 44 U/L (12-78); ALBUMIN/GLOBULIN RATIO 0.9 (1.1-1.5); ALKALINE PHOSPHATASE 167 IU/L (46-116); ANION GAP 9 (8-16); ASPARTATE AMINO TRANSFERASE 65 U/L (10-37); BILIRUBIN,TOTAL 0.6 MG/DL (0.1-1.0); BLOOD UREA NITROGEN 10 MG/DL (7-18); BUN/CREATININE RATIO 13.5 (6.6-38.0); CALCIUM 8.9 MG/DL (8.5-10.1); CHLORIDE 93 MMOL/L (99-107); CREATININE 0.74 MG/DL (0.40-0.90); GLUCOSE 154 MG/DL (70-104); MAGNESIUM 1.6 MG/DL (1.5-2.4); SODIUM 126 MMOL/L (135-145); TOTAL CARBON DIOXIDE 24.4 MMOL/L (24-32); TOTAL PROTEIN 6.3 G/DL (6.4-8.2); eGFR 75 ML/MIN
[2020-09-16 09:51] LABS: UA COLLECTION TYPE CLN CATCH MIDSTREAM
[2020-09-16 09:52] LABS: SQUAMOUS EPITHELIAL CELL,UR MODERATE /LPF (FEW)
[2020-09-16 09:57] LABS: BACTERIA,URINE FEW /HPF (Neg); HYALINE CASTS 0-3 /LPF (NEGATIVE); RBC,URINE 0-2 /HPF (0-2); TRANSITIONAL EPI CELLS,URINE FEW /HPF; WBC,URINE 0-4 /HPF (0-4)
[2020-09-16 11:38] VITALS: BP 120/71
== END 2020-09-16 11:41 | disposition home or self-care (01) ==
LOC: ER 08:01
DX: I50.9 Heart failure, unspecified (principal); I11.0 Hypertensive heart disease with heart failure; E87.1 Hypo-osmolality and hyponatremia; M79.89 Other specified soft tissue disorders; R06.02 Shortness of breath; R53.1 Weakness; I48.91 Unspecified atrial fibrillation; E78.00 Pure hypercholesterolemia, unspecified; K21.9 Gastro-esophageal reflux disease without esophagitis; E11.9 Type 2 diabetes mellitus without complications; F41.9 Anxiety disorder, unspecified; Z90.49 Acquired absence of other specified parts of digestive tract; Z98.890 Other specified postprocedural states; Z72.89 Other problems related to lifestyle; Z88.5 Allergy status to narcotic agent; Z88.1 Allergy status to other antibiotic agents; Z79.2 Long term (current) use of antibiotics; Z79.899 Other long term (current) drug therapy
CPT/HCPCS: 36415; 71045; 80053; 81001; 83735; 83880; 84484; 85025; 93005; 96374; 99285; J1940

== ENCOUNTER 2022-11-02 10:44 | Inpatient (IN) | payer MEDICARE, MEDICAID ==
[~2022-11-02] VITALS: Ht 157.5 cm; Wt 47.3 kg
[~2022-11-02 10:44] MED LIST changes: -AMIO200T36; +AMIO200T36 PO; +LEVO-65 PO; -LEVO500T89 PO; -OMEP40CA13 PO; +OMEP40CA21 PO
[2022-11-02 11:33] LABS: BASOPHILS # (AUTO) 0.1 X10'3 (0-0.2); BASOPHILS % (AUTO) 1.3 % (0-1); EOSINOPHILS # (AUTO) 0.1 X10'3 (0-0.9); EOSINOPHILS % (AUTO) 1.2 % (0-6); HEMATOCRIT 33.5 % (35.0-45.0); LYMPHOCYTES # (AUTO) 1.3 X10'3 (1.1-4.8); LYMPHOCYTES % (AUTO) 20.5 % (21-51); MEAN CORPUSCULAR HEMOGLOBIN 29.4 PG (27.0-31.0); MEAN CORPUSCULAR VOLUME 89.1 FL (78-98); MEAN PLATELET VOLUME 6.9 FL (7.4-10.4); MONOCYTES # (AUTO) 0.5 X10'3 (0-0.9); MONOCYTES % (AUTO) 7.7 % (2-12); NEUTROPHILS # (AUTO) 4.4 X10'3 (1.8-7.7); NEUTROPHILS % (AUTO) 69.3 % (42-75); PLATELET COUNT 343 X10'3 (140-440); RED BLOOD COUNT 3.76 X10'6 (4.20-5.60); RED CELL DISTRIBUTION WIDTH 16.3 % (11.5-14.5); WHITE BLOOD COUNT 6.3 X10'3 (4.5-11.0)
[2022-11-02 11:48] LABS: ALANINE AMINOTRANSFERASE 24 U/L (12-78); ALBUMIN 3.1 G/DL (3.4-5.0); ALBUMIN/GLOBULIN RATIO 0.7 (1.1-1.5); ALKALINE PHOSPHATASE 129 IU/L (46-116); ANION GAP 7 (8-16); ASPARTATE AMINO TRANSFERASE 24 U/L (10-37); BILIRUBIN,TOTAL 0.4 MG/DL (0.1-1.0); BLOOD UREA NITROGEN 19 MG/DL (7-18); BUN/CREATININE RATIO 14.8 (10.0-20.0); CHLORIDE 91 MMOL/L (99-107); CREATININE 1.28 MG/DL (0.40-0.90); GLUCOSE 121 MG/DL (70-104); POTASSIUM 4.5 MMOL/L (3.5-5.1); SODIUM 127 MMOL/L (135-145); TOTAL CARBON DIOXIDE 29.5 MMOL/L (24-32); TOTAL PROTEIN 7.3 G/DL (6.4-8.2); eGFR 40 ML/MIN
[2022-11-02 11:56] LABS: CLARITY,URINE SLIGHTLY CLOUDY (Clear); COLOR,URINE YELLOW (Yellow); GLUCOSE, URINE NEGATIVE (Neg); KETONES,URINE NEGATIVE (Neg); LEUKOCYTE ESTERASE ,URINE NEGATIVE (Neg); NITRITES, URINE NEGATIVE (Neg); OCCULT BLOOD,URINE NEGATIVE (Neg); PH,URINE 6.5 (4.8-8.0); PROTEIN,URINE NEGATIVE (Neg); UROBILINOGEN,URINE 0.2 E.U/dL (0.2-1.0)
[2022-11-02 12:02] LABS: UA COLLECTION TYPE STRAIGHT CATH
[2022-11-02 12:03] LABS: BACTERIA,URINE 4+ /HPF (Neg); RBC,URINE NONE SEEN /HPF (0-2); SQUAMOUS EPITHELIAL CELL,UR FEW /LPF (FEW)
[2022-11-02 12:04] LABS: MUCUS STRANDS NONE SEEN /LPF (Neg); WBC CLUMPS,URINE FEW /HPF (NEGATIVE)
[2022-11-02] MEDS ORDERED: normal saline 1000ml 1,000 ML IV ONE (12:20)
[2022-11-02] MEDS: normal saline 1000ml 1,000 ML IV SCH ×2 (12:45→22:38)
[2022-11-02] MEDS ORDERED: magnesium Cl slow-release 64mg tablet PO PRN (13:25)
[2022-11-02] MEDS ORDERED: magnesium 2GM in 50ml NS 50 ML IV PRN (13:25)
[2022-11-02] MEDS ORDERED: ondansetron/PF 4mg/2ml inj IV PRN (13:25)
[2022-11-02] MEDS ORDERED: acetaminophen 325mg tablet PO PRN (13:25)
[2022-11-02] MEDS ORDERED: mag hydrox/Alum hydrox/simeth 30ml oral suspension PO PRN (13:25)
[2022-11-02] MEDS ORDERED: magnesium 4gm in 100ml NS 100 ML IV PRN (13:25)
[2022-11-02] MEDS ORDERED: magnesium hydroxide 30ml (MOM) UD suspension PO PRN (13:25)
[2022-11-02] MEDS ORDERED: potassium Cl 20 mEq SR tablet PO PRN ×2 (13:25)
[2022-11-02] MEDS ORDERED: potassium Cl 40MEQ/1/2NS 520ml 520 ML IV PRN (13:25)
[2022-11-02] MEDS ORDERED: FURO-150 PO (14:11)
[2022-11-02] MEDS ORDERED: POTA-206 PO (14:11)
[2022-11-02] MEDS ORDERED: SODI1TAB2 PO (14:11)
[2022-11-02 15:01] LABS: HEMOGLOBIN A1C 6.5 % (4.5-6.2)
--- NOTE | 2022-11-02 17:18 | NUR ---
Did not receive report from primary nurse of pt but from conveyor line battery charger. Requested for 5pm accucheck to be done before admit to floor but RN refused, stating "I got to get her up there."
[2022-11-02 18:26] VITALS: BP 143/78
--- NOTE | 2022-11-02 18:27 | NUR ---
Report given to Fabby PATEL.
[2022-11-02] MEDS: docusate sod 100mg capsule PO SCH (19:21)
[2022-11-02] MEDS: K and/or MAG REPLACEMENT MC SCH (20:24)
[2022-11-02 22:00] VITALS: BP 158/78
[2022-11-03 06:00] VITALS: BP 141/70
[2022-11-03] MEDS ORDERED: amiodarone 200mg tablet PO SCH (08:00)
[2022-11-03] MEDS ORDERED: VIT K PO SCH (08:00)
[2022-11-03] MEDS ORDERED: lisinopril 20mg tablet PO SCH (08:00)
[2022-11-03] MEDS ORDERED: [UNRECOGNIZED DRUG - OTHER] PO SCH (08:00)
[2022-11-03] MEDS ORDERED: LUT PO SCH (08:00)
[2022-11-03] MEDS ORDERED: MV MN PO SCH (08:00)
[2022-11-03] MEDS ORDERED: pantoprazole 40mg Tablet.DR PO SCH (08:00)
[2022-11-03] MEDS ORDERED: potassium chloride 10mEq ER tablet PO SCH (08:00)
[2022-11-03] MEDS ORDERED: oxybutynin 5mg tablet PO SCH (08:00)
[2022-11-03] MEDS ORDERED: furosemide 20MG tablet PO SCH (08:00)
[2022-11-03] MEDS ORDERED: sodium chloride 1gm tablet PO SCH (08:00)
[2022-11-03] MEDS ORDERED: apixaban 2.5mg tablet PO SCH (08:00)
[2022-11-03] MEDS: K and/or MAG REPLACEMENT MC SCH (08:00)
[2022-11-03] MEDS ORDERED: metoprolol succinate 25mg (24-HOUR) SR. Tablet PO SCH (08:00)
[2022-11-03] MEDS ORDERED: COQ10 PO SCH (08:00)
[2022-11-03] MEDS: docusate sod 100mg capsule PO SCH (08:00)
[2022-11-03] MEDS ORDERED: LYCOP PO SCH (08:00)
[2022-11-03] MEDS ORDERED: lisinopril 5mg tablet PO SCH (08:35)
[2022-11-03 08:45] LABS: BASOPHILS # (AUTO) 0.1 X10'3 (0-0.2); BASOPHILS % (AUTO) 0.9 % (0-1); EOSINOPHILS # (AUTO) 0.1 X10'3 (0-0.9); EOSINOPHILS % (AUTO) 1.7 % (0-6); HEMATOCRIT 30.4 % (35.0-45.0); LYMPHOCYTES # (AUTO) 1.2 X10'3 (1.1-4.8); LYMPHOCYTES % (AUTO) 18.1 % (21-51); MEAN CORPUSCULAR HEMOGLOBIN 29.3 PG (27.0-31.0); MEAN CORPUSCULAR HGB CONC 32.8 g/dL (33.0-36.5); MEAN CORPUSCULAR VOLUME 89.2 FL (78-98); MEAN PLATELET VOLUME 7.4 FL (7.4-10.4); MONOCYTES # (AUTO) 0.5 X10'3 (0-0.9); NEUTROPHILS # (AUTO) 4.5 X10'3 (1.8-7.7); NEUTROPHILS % (AUTO) 71.3 % (42-75); PLATELET COUNT 286 X10'3 (140-440); RED BLOOD COUNT 3.41 X10'6 (4.20-5.60); RED CELL DISTRIBUTION WIDTH 16.6 % (11.5-14.5); WHITE BLOOD COUNT 6.3 X10'3 (4.5-11.0)
[2022-11-03 09:07] LABS: ALBUMIN 2.7 G/DL (3.4-5.0); ANION GAP 6 (8-16); BLOOD UREA NITROGEN 16 MG/DL (7-18); BUN/CREATININE RATIO 14.7 (10.0-20.0); CALCIUM 8.8 MG/DL (8.5-10.1); CHLORIDE 96 MMOL/L (99-107); CREATININE 1.09 MG/DL (0.40-0.90); GLUCOSE 88 MG/DL (70-104); MAGNESIUM 1.7 MG/DL (1.5-2.4); POTASSIUM 4.3 MMOL/L (3.5-5.1); SODIUM 132 MMOL/L (135-145); TOTAL CARBON DIOXIDE 30.4 MMOL/L (24-32); eGFR 48 ML/MIN
[2022-11-03 09:58] VITALS: BP 129/64
--- NOTE | 2022-11-03 10:10 | NUR ---
gave pt packets of salt to put on food/snacks Addendum: 11/03/22 at 1356 by Yana Rahman RN urine has foul odor Addendum: 11/03/22 at 1400 by Yana Rahman RN Permission to callback granddaughter Kierra, called #[phone] and left generic voicemail. Need to notify of dc
[2022-11-03 11:16] VITALS: BP 126/78
[2022-11-03] MEDS ORDERED: LEVO-65 PO (12:23)
[2022-11-03] MEDS ORDERED: FURO-150 PO (12:23)
[2022-11-03] MEDS ORDERED: ondansetron 4mg rapidly disintigrating tab PO PRN (13:50)
--- NOTE | 2022-11-03 14:26 | NUR ---
Malnutrition consult: Pt reports 2-13 lb wt loss with decreased appetite per malnutrition risk screen with RN. Per EMR pt admit for hyponatremia, RICKY, and AMS with h/o dementia. Patient's scaled wt hx is stable with range 55.91-52.3 kg 10/28/19-08/26/20, current wt is 47.27 kg though not scaled. Pt on a regular diet and eating well, documented with 50% PO intake of first meal up to 100% PO intake of the following meal. Pt with no documented significant decrease in muscle strength or edema. Pt currently lacks a minimum of two criteria for malnutrition. Will continue to follow and monitor qualifying malnutrition criteria. Addendum: 11/03/22 at [address] Amended: Links added.
--- NOTE | 2022-11-03 14:43 | NUR ---
Ezxplained dc instructions with pt and granddaughter at bedside. Verbalized understanding and endorsed has all belongings. d/v IV, tip intact. Escorted pt to awaiting family vehicle.
[2022-11-04 16:14] LABS: HBSAG SCREEN Negative (Negative); HEP B CORE AB, TOT Negative (Negative)
== END 2022-11-03 14:43 | disposition home or self-care (01) | DRG 640 ==
LOC: ER 10:45 → ED HOLD 13:26 → OBSVTOIN 13:26 → SUR 3N 17:30
PROVIDERS: ADMIT Family Medicine; ATTEND Family Medicine
DX: E87.1 Hypo-osmolality and hyponatremia (principal); G93.41 Metabolic encephalopathy; N17.0 Acute kidney failure with tubular necrosis; N39.0 Urinary tract infection, site not specified; I48.20 Chronic atrial fibrillation, unspecified; E11.9 Type 2 diabetes mellitus without complications; Z20.822 Contact with and (suspected) exposure to COVID-19; Z66 Do not resuscitate; F41.9 Anxiety disorder, unspecified; K21.9 Gastro-esophageal reflux disease without esophagitis; E78.00 Pure hypercholesterolemia, unspecified; E86.0 Dehydration; F03.90 Unspecified dementia, unspecified severity, without behavioral disturbance, psychotic disturbance, mood disturbance, and anxiety; I11.0 Hypertensive heart disease with heart failure; I50.9 Heart failure, unspecified; Z79.01 Long term (current) use of anticoagulants; Z79.84 Long term (current) use of oral hypoglycemic drugs; Z88.5 Allergy status to narcotic agent; Z88.8 Allergy status to other drugs, medicaments and biological substances; Z90.49 Acquired absence of other specified parts of digestive tract; Z79.899 Other long term (current) drug therapy
CPT/HCPCS: 36415; 70450; 71045; 80048; 80053; 81001; 82948; 83036; 83735; 83880; 84484; 85025; 86704; 86705; 86706; 87077; 87081; 87088; 87186; 87340; 87811; 93005; 96360; 97116; 97161; 97530; 97535; 99285; A4353; G0378; J7030

== ENCOUNTER 2022-12-06 15:47 | Emergency (ER) | payer MEDICARE, MEDICAID ==
[~2022-12-06] VITALS: Ht 157.5 cm; Wt 45.1 kg
[~2022-12-06 15:47] MED LIST changes: -ACET-2119 PO; +FURO-150 PO; +POTA-206 PO; +SODI1TAB2 PO
[2022-12-06 20:10] VITALS: BP 166/94
[2022-12-06 20:25] LABS: BASOPHILS % (AUTO) 0.5 % (0-1); EOSINOPHILS # (AUTO) 0.1 X10'3 (0-0.9); EOSINOPHILS % (AUTO) 1.8 % (0-6); HEMATOCRIT 29.3 % (35.0-45.0); HEMOGLOBIN 9.9 g/dl (12.0-16.0); LYMPHOCYTES # (AUTO) 1.4 X10'3 (1.1-4.8); LYMPHOCYTES % (AUTO) 17.7 % (21-51); MEAN CORPUSCULAR HEMOGLOBIN 30.2 PG (27.0-31.0); MEAN CORPUSCULAR VOLUME 88.8 FL (78-98); MEAN PLATELET VOLUME 7.4 FL (7.4-10.4); MONOCYTES # (AUTO) 0.7 X10'3 (0-0.9); MONOCYTES % (AUTO) 9.2 % (2-12); NEUTROPHILS # (AUTO) 5.5 X10'3 (1.8-7.7); NEUTROPHILS % (AUTO) 70.8 % (42-75); PLATELET COUNT 309 X10'3 (140-440); RED CELL DISTRIBUTION WIDTH 16.9 % (11.5-14.5); WHITE BLOOD COUNT 7.7 X10'3 (4.5-11.0)
[2022-12-06 20:39] LABS: ALANINE AMINOTRANSFERASE 35 U/L (12-78); ALBUMIN 2.7 G/DL (3.4-5.0); ALBUMIN/GLOBULIN RATIO 0.7 (1.1-1.5); ALKALINE PHOSPHATASE 160 IU/L (46-116); ANION GAP 9 (8-16); ASPARTATE AMINO TRANSFERASE 24 U/L (10-37); BILIRUBIN,TOTAL 0.4 MG/DL (0.1-1.0); BLOOD UREA NITROGEN 17 MG/DL (7-18); BUN/CREATININE RATIO 13.8 (10.0-20.0); CALCIUM 8.4 MG/DL (8.5-10.1); CHLORIDE 93 MMOL/L (99-107); CREATININE 1.23 MG/DL (0.40-0.90); GLUCOSE 108 MG/DL (70-104); SODIUM 129 MMOL/L (135-145); TOTAL CARBON DIOXIDE 27.2 MMOL/L (24-32); TOTAL PROTEIN 6.4 G/DL (6.4-8.2); eGFR 42 ML/MIN
== END 2022-12-06 23:13 | disposition left against medical advice (07) ==
LOC: ER 15:48
DX: R05.9 Cough, unspecified (principal); Z53.21 Procedure and treatment not carried out due to patient leaving prior to being seen by health care provider
CPT/HCPCS: 36415; 71045; 80053; 83880; 84484; 85025; 99281